=== PATIENT | male | born 1970 | race African-American/Black ===

== ENCOUNTER 2019-01-23 17:17 | Inpatient (IN) | payer BC ==
--- NOTE | 2019-01-23 17:27 | Event Note ---
ED Screening Note Date of service: 01/23/19 Time: 17:23 ED Screening Note: 48 y o male presents was seen by pcp last week fro abd pain, was given flagyl presents today because abd pain began with n/v This initial assessment/diagnostic orders/clinical plan/treatment(s) is/are subject to change based on patients health status, clinical progression and re- assessment by fellow clinical providers in the ED. Further treatment and workup at subsequent clinical providers discretion. Patient/guardian urged not to elope from the ED as their condition may be serious if not clinically assessed and managed. Initial orders include: labs,ua ct?
[2019-01-23] MEDS ORDERED: ONDANSETRON 4 MG/2 ML INJ IV ONE (18:30)
[2019-01-23] MEDS ORDERED: MORPHINE 4 MG/1 ML INJ IV ONE (18:30)
[2019-01-23] MEDS ORDERED: SODIUM CHLORIDE 0.9% 1000 ML 1,000 ML IV ONE ×2 (18:30→20:52)
[2019-01-23 18:35] LABS: Amorphous Crystals,Urine Few; Bilirubin,Urine NEG (Negative); Blood,Urine NEG (Negative); Calcium Oxalate Crystals,Urine 1+; Color,Urine Amber (Yellow); Mucus,Urine 3+ /HPF; Protein,Urine <15 mg/dL mg/dL (Negative)
[2019-01-23 18:36] LABS: RBC,Urine < 1.0 /HPF (0.0-6.0); WBC,Urine < 1.0 /HPF (0.0-6.0)
[2019-01-23 18:45] LABS: Basophils % (Auto) 0.4 % (0.0-1.8); Eosinophils % (Auto) 0.3 % (0.0-4.3); Hematocrit 41.6 % (35.5-45.6); Hemoglobin 14.3 gm/dl (11.8-15.2); Lymphocytes % (Auto) 14.6 % (13.4-35.0); Mean Corpuscular HGB Conc 34 % (32-34); Mean Corpuscular Volume 91 fl (84-94); Monocytes # (Auto) 0.8 K/mm3 (0.0-0.8); Monocytes % (Auto) 11.3 % (0.0-7.3); Platelet Count 431 K/mm3 (140-440); Red Blood Count 4.58 M/mm3 (3.65-5.03); Red Cell Distribution Width 12.4 % (13.2-15.2)
[2019-01-23 19:08] LABS: Albumin 4.1 g/dL (3.9-5); BUN/Creatinine Ratio 18; Blood Urea Nitrogen 11 mg/dL (9-20); Calcium 9.3 mg/dL (8.4-10.2); Hemolysis Index 58
[2019-01-23 19:11] LABS: Alanine Aminotransferase 755 units/L (7-56)
--- NOTE | 2019-01-23 20:24 | Cat Scan Report ---
CT ABDOMEN AND PELVIS WITH CONTRAST HISTORY: abdominal pain: Upper- Gallstones vs Cholecystitis. COMPARISON: None. TECHNIQUE: CT images of the abdomen and pelvis were obtained following administration of intravenous contrast. All CT scans at this location are performed using CT dose reduction for ALARA by means of automated exposure control. CONTRAST: 100 ml of intravenous contrast administered. FINDINGS: Lungs/bones: There is mild bibasilar atelectasis. No acute osseous abnormality. Mild degenerative ch anges are present in the spine and pelvis. Abdomen/pelvis: There is cholelithiasis with abnormal gallbladder wall thickening and mild distentio n. Stones are also seen within the cystic duct and also in the distal CBD measuring up to approximate ly 6 mm in maximal dimension on image #78 of series #2. There is mild intrahepatic and extrahepatic b iliary duct dilatation. The spleen, pancreas, adrenals, kidneys, and proximal GI tract appear unremarkable. The liver otherwi se appears unremarkable, as well. Prostate is enlarged. No pelvic free fluid and the urinary bladder is normal. The colon is unremarkab le including the appendix and terminal ileum. IMPRESSION: 1. Cholelithiasis and choledocholithiasis with CBD obstruction causing intrahepatic and extrahepatic biliary ductal dilatation. Abnormal wall thickening within the gallbladder and multiple cystic duct s tones also suggest cholecystitis. Signer Name: Jono Zhang MD Signed: 01/23/2019 8:19 PM Workstation Name: [id number]
[2019-01-23] MEDS ORDERED: METOCLOPRAMIDE 10 MG/2 ML INJ IV ONE (20:51)
[2019-01-23] MEDS ORDERED: HYDROmorphone 1 MG/1 ML INJ IV ONE (20:51)
[2019-01-23] MEDS ORDERED: PIPERACIL/TAZOBACTA 4.5/NS 100 4.5 GM/100 ML VIAL IV ONE (20:51)
--- NOTE | 2019-01-23 20:51 | Emergency Department Report ---
ED Abdominal Pain HPI - General Chief Complaint: Abdominal Pain Stated Complaint: STOMACH PX Source: patient Mode of arrival: Ambulatory Limitations: No Limitations - History of Present Illness Initial Comments: Patient is a 48-year-old [place] male with no past medical history who presents to the ED with complaint of acute onset persistent severe epigastric pain that radiates of the right upper quadrant area with intractable nausea and vomiting for the last 3 days. Patient states that he has not been able to eat anything in the last 24 hours and that the pain gets worse with food or drinking water. Patient denies fever, chills, dizziness, diarrhea, chest pain, shortness of breath, change in vision, hematuria, testicular pain, hematemesis or hematochezia. MD Complaint: abdominal pain, other (nausea and vomiting) -: Sudden, days(s) (3) Location: RUQ, epigastric Radiation: RUQ, epigastric Migration to: no migration Severity: severe Severity scale (0 -10): 8 Quality: cramping, sharp Consistency: constant Improves With: nothing Worsens With: eating, vomiting Associated Symptoms: denies other symptoms, nausea, vomiting. denies: diarrhea, fever, chills, constipation, hematemesis, hematochezia, hematuria, anorexia, syncope - Related Data Home Medications Medication Instructions Recorded Confirmed Last Taken No Known Home Medications [No 01/23/19 01/23/19 Unknown Reported Home Medications] Allergies Allergy/AdvReac Type Severity Reaction Status Date / Time No Known Allergies Allergy Unverified 01/23/19 17:26 ED Review of Systems ROS: Stated complaint: STOMACH PX Other details as noted in HPI Constitutional: denies: chills, fever Eyes: denies: eye pain, eye discharge, vision change ENT: denies: ear pain, throat pain Respiratory: denies: cough, shortness of breath, wheezing Cardiovascular: denies: chest pain, palpitations Endocrine: no symptoms reported Gastrointestinal: abdominal pain (epigastric and RUQ pain), nausea, vomiting. denies: diarrhea, hematemesis, hematochezia Genitourinary: denies: urgency, dysuria Musculoskeletal: denies: back pain, joint swelling, arthralgia Skin: denies: rash, lesions Neurological: denies: headache, weakness, paresthesias Psychiatric: denies: anxiety, depression Hematological/Lymphatic: denies: easy bleeding, easy bruising ED Past Medical Hx - Past Medical History Previous Medical History?: No - Surgical History Past Surgical History?: No - Medications Home Medications: Home Medications Medication Instructions Recorded Confirmed Last Taken Type No Known Home Medications [No 01/23/19 01/23/19 Unknown History Reported Home Medications] ED Physical Exam - General Limitations: No Limitations General appearance: alert, in no apparent distress - Head Head exam: Present: atraumatic, normocephalic, normal inspection - Eye Eye exam: Present: normal appearance, PERRL, EOMI Pupils: Present: normal accommodation - ENT ENT exam: Present: normal exam, normal orophraynx, mucous membranes moist, TM's normal bilaterally, normal external ear exam - Neck Neck exam: Present: normal inspection, full ROM - Respiratory Respiratory exam: Present: normal lung sounds bilaterally. Absent: respiratory distress, wheezes, rales, rhonchi, chest wall tenderness, accessory muscle use, prolonged expiratory - Cardiovascular Cardiovascular Exam: Present: regular rate, normal rhythm, normal heart sounds. Absent: systolic murmur, diastolic murmur, rubs, gallop - GI/Abdominal GI/Abdominal exam: Present: soft, tenderness (probable epigastric and right upper quadrant tenderness with positive Sinclair sign), guarding, rebound, normal bowel sounds. Absent: hyperactive bowel sounds - Extremities Exam Extremities exam: Present: normal inspection, full ROM, normal capillary refill - Back Exam Back exam: Present: normal inspection, full ROM. Absent: tenderness, muscle spasm, paraspinal tenderness, vertebral tenderness - Neurological Exam Neurological exam: Present: alert, oriented X3, CN II-XII intact, normal gait, reflexes normal - Psychiatric Psychiatric exam: Present: normal affect, normal mood - Skin Skin exam: Present: warm, dry, intact, normal color. Absent: rash ED Course Vital Signs 01/23/19 01/23/19 01/23/19 17:27 21:22 21:39 Temperature 99.1 F 98.8 F Pulse Rate 91 H 92 H Respiratory 18 17 18 Rate Blood Pressure 120/98 132/90 [Right] O2 Sat by Pulse 100 95 Oximetry ED Medical Decision Making - Lab Data Result diagrams: 01/23/19 17:59 01/23/19 17:59 - Radiology Data Radiology results: report reviewed, image reviewed Findings [address] [address] Cat Scan Report Signed Patient: CHRISTI BRADEN MR#: [id number] : 1970 Acct:[id number] Age/Sex: 48 / M ADM Date: 01/23/19 Loc: ED Attending Dr: Ordering Physician: FELICITY REY Date of Service: 01/23/19 Procedure(s): CT abdomen pelvis w con Accession Number(s): [id number] cc: FELICITY REY CT ABDOMEN AND PELVIS WITH CONTRAST HISTORY: abdominal pain: Upper- Gallstones vs Cholecystitis. COMPARISON: None. TECHNIQUE: CT images of the abdomen and pelvis were obtained following administration of intravenous contrast. All CT scans at this location are performed using CT dose reduction for ALARA by means of automated exposure control. CONTRAST: 100 ml of intravenous contrast administered. FINDINGS: Lungs/bones: There is mild bibasilar atelectasis. No acute osseous abnormality. Mild degenerative changes are present in the spine and pelvis. Abdomen/pelvis: There is cholelithiasis with abnormal gallbladder wall thickening and mild distention. Stones are also seen within the cystic duct and also in the distal CBD measuring up to approximately 6 mm in maximal dimension on image #78 of series #2. There is mild intrahepatic and extrahepatic biliary duct dilatation. The spleen, pancreas, adrenals, kidneys, and proximal GI tract appear unremarkable. The liver otherwise appears unremarkable, as well. Prostate is enlarged. No pelvic free fluid and the urinary bladder is normal. The colon is unremarkable including the appendix and terminal ileum. IMPRESSION: 1. Cholelithiasis and choledocholithiasis with CBD obstruction causing intrahepatic and extrahepatic biliary ductal dilatation. Abnormal wall thickening within the gallbladder and multiple cystic duct stones also suggest cholecystitis. Signer Name: Jono Zhang MD Signed: 01/23/2019 8:19 PM Workstation Name: [id number] Transcribed By: BRITT Dictated By: Jono Zhang MD Electronically Authenticated By: Jono Zhang MD Signed Date/Time: 01/23/192018 DD/ 16 TD/TT: - Medical Decision Making This is a 48-year-old male who presented to the ED with acute onset severe epigastric and right upper quadrant pain with intractable nausea and vomiting for 3 days. In the ED, patient is alert and oriented 3 and is not in distress but appears to be significantly in pain as he cannot keep still during the physical exam which is characterized by right upper quadrant tenderness with a positive Sinclair's sign. Patient is hemodynamically stable. Lab test results w ere reviewed and shows significantly elevated LFTs with AST of 956, and LT of 755, and alkaline phosphatase of 190, total bilirubin of 2.00. The rest of the lab test results are nonactionable. Abdomen pelvis CT scan with contrast shows cholelithiasis and choledocholithiasis with CBD obstruction causing intrahepatic and extrahepatic biliary ductal dilatation. Abnormal wall thickening within the gallbladder and multiple cystic duct stones also suggest cholecystitis. Patient was treated for pain and also for nausea and vomiting are most given normal saline 1 L IV bolus. These findings were discussed with Dr. Killian the ED attending physician who agreed the plan of care to consult the general surgeon, Dr. Galvez, and the GI physician on-call for [employer] configuration management architect, Dr. Jamison Maria, and also the hospitalist physician operations officer trust department Dr. Caro. I patient and discussed the patient's case and findings with the general surgeon operations officer trust department Dr. Galvez who advised the patient kept nothing by [facility], be treated for pain and given normal saline IV fluids and also started on Zosyn and that the hospitalist physician admit and she shall consult the patient in the morning. I also discussed the patient's case with the [employer] configuration management architect on-call Dr. Jamison Maria agreed to consult the patient in the morning for further evaluation. I also discussed the patient's case with the hospitalist physician on-call Dr. Stevens who admitted the patient to the hospital and requested that the ED admission bridge orders be placed for the patient. - Differential Diagnosis Choledocholithiasis; Cholecystitis; Abdominal pain; Vomiting Critical care attestation.: If time is entered above; I have spent that time in minutes in the direct care of this critically ill patient, excluding procedure time. ED Disposition Clinical Impression: Choledocholithiasis with acute cholecystitis with obstruction, Abdominal pain in male, Nausea and vomiting in adult Disposition: 09 OP ADMIT IP TO THIS HOSP Is pt being admited?: Yes Does the pt Need Aspirin: Yes Condition: Stable Instructions: Cholecystitis (ED), Cholelithiasis (ED) Referrals: PRIMARY CARE, [Primary Care Provider] - 3-5 Days Time of Disposition: 22:03 Print Language: SLOVENIAN
[2019-01-23] MEDS ORDERED: ONDANSETRON 4 MG/2 ML INJ IV PRN (22:31)
--- NOTE | 2019-01-23 23:48 | History and Physical Report ---
History of Present Illness Date of examination: 01/23/19 Date of admission: 01/23/19 Chief complaint: Abdominal painepigastric Nausea and vomiting History of present illness: 48-year-old male presenting to the emergency room complaining of abdominal pain. Abdominal pain is said to be epigastric and has been having associated nausea and vomiting. Patient has no significant past medical history. He also indicates yellow been able to tolerate oral intake over the past 24 hours. He denies any fever, no chills, no chest pain no shortness of breath. No diarrhea. Upon evaluation in the emergency room, his liver enzymes were found to be elevated. He subsequently had a CT of the abdomen and pelvis revealing choledocholithiasis cholecystitis cholelithiasis. His condition has been discussed with the general surgeon Dr. West will be following up on patient the lauren Date Pitter on-call was also consulted by the ER physician. Past History Past Surgical History: No surgical history Social history: no significant social history Family history: hypertension (Hypertension in mother) Medications and Allergies Allergies Allergy/AdvReac Type Severity Reaction Status Date / Time No Known Allergies Allergy Verified 01/23/19 22:36 Home Medications Medication Instructions Recorded Confirmed Last Taken Type No Known Home Medications [No 01/23/19 01/23/19 Unknown History Reported Home Medications] Active Meds: Active Medications Sodium Chloride (Nacl 0.9% 1000 Ml) 1,000 mls @ 125 mls/hr IV DIRECT SANTI Piperacillin Sod/Tazobactam Sod (Zosyn/Ns 3.375gm/50ml) 3.375 gm in 50 mls @ 100 mls/hr IV Q8HR SANTI; Protocol Morphine Sulfate (Morphine) 2 mg IV Q4H PRN PRN Reason: Pain, Moderate (4-6) Ondansetron HCl (Zofran) 4 mg IV Q8H PRN PRN Reason: Nausea And Vomiting Sodium Chloride (Sodium Chloride Flush Syringe 10 Ml) 10 ml IV BID SANTI Sodium Chloride (Sodium Chloride Flush Syringe 10 Ml) 10 ml IV PRN PRN PRN Reason: LINE FLUSH Review of Systems Gastrointestinal: abdominal pain, nausea, vomiting Exam - Constitutional Vitals: Temp Pulse Resp BP Pulse Ox 98.8 F 92 H 18 132/90 95 01/23/19 21:39 01/23/19 21:39 01/23/19 21:39 01/23/19 21:39 01/23/19 21:39 General appearance: Present: no acute distress, well-nourished - EENT Eyes: Present: PERRL, EOM intact ENT: hearing intact, clear oral mucosa, dentition normal - Neck Neck: Present: supple, normal ROM - Respiratory Respiratory effort: normal Respiratory: bilateral: CTA - Cardiovascular Rhythm: regular Heart Sounds: Present: S1 & S2 - Extremities Extremities: no ischemia, pulses intact, pulses symmetrical, No edema Peripheral Pulses: within normal limits - Abdominal General gastrointestinal: Present: soft, tender, non-distended Localized gastrointestinal: tender: epigastric periumbilical (Epi epigastric tenderness) - Integumentary Integumentary: Present: clear, warm, dry - Musculoskeletal Musculoskeletal: strength equal bilaterally - Psychiatric Psychiatric: appropriate mood/affect, intact judgment & insight, cooperative - Neurologic Neurologic: CNII-XII intact, moves all extremities Results - Labs CBC & Chem 7: 01/23/19 17:59 01/23/19 17:59 Labs: Abnormal lab results 01/23/19 01/23/19 Range/Units 17:59 17:59 RDW 12.4 L (13.2-15.2) % [place] % (Auto) 11.3 H (0.0-7.3) % Lymph # 1.0 L (1.2-5.4) K/mm3 Seg Neutrophils % 73.4 H (40.0-70.0) % Creatinine 0.6 L (0.8-1.5) mg/dL Glucose 129 H (75-100) mg/dL Total Bilirubin 2.00 H (0.1-1.2) mg/dL AST 956 H (5-40) units/L ALT 755 H (7-56) units/L Alkaline Phosphatase 190 H (35-129) units/L Assessment and Plan - Patient Problems (1) Choledocholithiasis with acute cholecystitis with obstruction Current Visit: Yes Status: Acute Plan to address problem: Meanwhile we will place patient on IV fluid and analgesic medication. She will be made n.p.o. Patient will be followed up by the general surgeon and sales development representative. (2) Nausea and vomiting in adult Current Visit: Yes Status: Acute Plan to address problem: We will place patient on IV Zofran as needed (3) DVT prophylaxis Current Visit: Yes Status: Acute Plan to address problem: Patient placed on sequential compression device. (4) Full code status Current Visit: Yes Status: Acute
[2019-01-24] MEDS: SODIUM CHLORIDE 0.9% 1000 ML 1,000 ML IV SCH ×3 (02:00→20:25)
[2019-01-24] MEDS: MORPHINE 2 MG/1 ML INJ IV PRN ×2 (02:53→17:56)
[2019-01-24] MEDS ORDERED: PIPERACILLIN/TAZOBACTAM 3.375 3.375 GM/50 ML BAG IV SCH (06:00)
[2019-01-24 06:29] LABS: Basophils % (Auto) 0.4 % (0.0-1.8); Eosinophils % (Auto) 0.1 % (0.0-4.3); Hematocrit 40.1 % (35.5-45.6); Hemoglobin 13.8 gm/dl (11.8-15.2); Lymphocytes % (Auto) 13.3 % (13.4-35.0); Mean Corpuscular HGB Conc 34 % (32-34); Mean Corpuscular Volume 91 fl (84-94); Monocytes # (Auto) 0.8 K/mm3 (0.0-0.8); Platelet Count 378 K/mm3 (140-440); Red Blood Count 4.43 M/mm3 (3.65-5.03); Red Cell Distribution Width 12.2 % (13.2-15.2)
[2019-01-24 06:37] LABS: INR 0.98 (0.87-1.13)
[2019-01-24 06:38] LABS: Partial Thromboplastin Time 26.3 Sec. (24.2-36.6)
[2019-01-24 06:49] LABS: BUN/Creatinine Ratio 20; Blood Urea Nitrogen 10 mg/dL (9-20); Calcium 8.5 mg/dL (8.4-10.2); Hemolysis Index 2
--- NOTE | 2019-01-24 10:19 | Gastroenterology Consultation ---
History of Present Illness - Reason for Consult Consult date: 01/24/19 choledocholithiasis Requesting physician: OLYA BURDICK - History of Present Illness Patient is a 48 y/o male with no significant PMH who presented to ED with c/o epigastric pain with associated N/V x 3. Upon admission, LFTs were found to be elevated with abd CT showing cholecystitis, cholelithiasis, and choledocholithiasis to which GI has been consulted. Surgery also consulted. This morning patient was resting in bed w/o acute distress with family at bedside who assisted with translating to obtain history. Patient reports symptoms began ~1 weeks ago, but then improved until 3 days ago when they re-occurred and became progressively worse. Abd pain is in epigastric area and radiates to RUQ, but now improved with pain medication. No vomiting today. Denies fever, CP, SOB, signs of bleeding, or LGI symptoms. Consumes 1-2 alcoholic drinks daily, but no IV drug use or hx of liver disease. Past History Past Medical History: No medical history Past Surgical History: No surgical history Social history: other (alcohol). denies: smoking Family history: hypertension (Hypertension in mother) Medications and Allergies Allergies Allergy/AdvReac Type Severity Reaction Status Date / Time No Known Allergies Allergy Verified 01/23/19 22:36 Home Medications Medication Instructions Recorded Confirmed Last Taken Type No Known Home Medications [No 01/23/19 01/23/19 Unknown History Reported Home Medications] Active Meds: Active Medications Sodium Chloride (Nacl 0.9% 1000 Ml) 1,000 mls @ 125 mls/hr IV DIRECT SANTI Last Admin: 01/24/19 02:00 Dose: 125 mls/hr Documented by: Piperacillin Sod/Tazobactam Sod (Zosyn/Ns 3.375gm/50ml) 3.375 gm in 50 mls @ 1 00 mls/hr IV Q8HR SANTI; Protocol Last Admin: 01/24/19 05:59 Dose: 100 mls/hr Documented by: Morphine Sulfate (Morphine) 2 mg IV Q4H PRN PRN Reason: Pain, Moderate (4-6) Last Admin: 01/24/19 02:53 Dose: 2 mg Documented by: Ondansetron HCl (Zofran) 4 mg IV Q8H PRN PRN Reason: Nausea And Vomiting Sodium Chloride (Sodium Chloride Flush Syringe 10 Ml) 10 ml IV BID SANTI Last Admin: 01/24/19 09:17 Dose: 10 ml Documented by: Sodium Chloride (Sodium Chloride Flush Syringe 10 Ml) 10 ml IV PRN PRN PRN Reason: LINE FLUSH medications reviewed/updated as required Review of Systems - Review of Systems All systems: negative Gastrointestinal: abdominal pain (epigastric), nausea, vomiting Exam - Constitutional Vital Signs: Temp Pulse Resp BP Pulse Ox 98.9 F 93 H 17 145/95 97 01/24/19 01:57 01/24/19 01:57 01/24/19 03:23 01/24/19 01:57 01/24/19 01:57 General appearance: no acute distress - EENT Eyes: PERRL, EOM intact ENT: hearing intact - Respiratory Respiratory effort: normal Respiratory: bilateral: CTA - Cardiovascular Rhythm: regular - Gastrointestinal General gastrointestinal: Present: soft, tender (epigastric/RUQ), non-distended, normal bowel sounds - Integumentary Integumentary: Present: warm, dry - Neurologic Neurological: alert and oriented x3 - Labs CBC & Chem 7: 01/24/19 05:31 01/24/19 05:31 Lab Results: Laboratory Results - last 24 hr 01/23/19 01/23/19 01/23/19 17:59 17:59 18:00 WBC 6.7 RBC 4.58 Hgb 14.3 Hct 41.6 MCV 91 MCH 31 MCHC 34 RDW 12.4 L Plt Count 431 Lymph % (Auto) 14.6 Crisp % (Auto) 11.3 H Eos % (Auto) 0.3 Baso % (Auto) 0.4 Lymph # 1.0 L Crisp # 0.8 Eos # 0.0 Baso # 0.0 Seg Neutrophils % 73.4 H Seg Neutrophils # 4.9 PT INR APTT Sodium 138 Potassium 3.7 Chloride 100.8 Carbon Dioxide 25 Anion Gap 16 BUN 11 Creatinine 0.6 L Estimated GFR > 60 BUN/Creatinine Ratio 18 Glucose 129 H Calcium 9.3 Total Bilirubin 2.00 H AST 956 H ALT 755 H Alkaline Phosphatase 190 H Total Protein 7.6 Albumin 4.1 Albumin/Globulin Ratio 1.2 Lipase 24 Urine Color Deb Urine Turbidity Slightly-cloudy Urine pH 6.0 Ur Specific [place] 1.020 Urine Protein <15 mg/dl Urine Glucose (UA) Neg Urine Ketones Neg Urine Blood Neg Urine Nitrite Neg Urine Bilirubin Neg Urine Urobilinogen 2.0 Ur Leukocyte Esterase Neg Urine WBC (Auto) < 1.0 Urine RBC (Auto) < 1.0 Calcium Oxalate Crystal 1+ Amorphous Crystals Few Urine Mucus 3+ 01/24/19 01/24/19 01/24/19 05:31 05:31 05:31 WBC 7.3 RBC 4.43 Hgb 13.8 Hct 40.1 MCV 91 MCH 31 MCHC 34 RDW 12.2 L Plt Count 378 Lymph % (Auto) 13.3 L Crisp % (Auto) 11.0 H Eos % (Auto) 0.1 Baso % (Auto) 0.4 Lymph # 1.0 L Crisp # 0.8 Eos # 0.0 Baso # 0.0 Seg Neutrophils % 75.2 H Seg Neutrophils # 5.5 PT 13.1 INR 0.98 APTT 26.3 Sodium 137 Potassium 4.0 Chloride 101.8 Carbon Dioxide 22 Anion Gap 17 BUN 10 Creatinine 0.5 L Estimated GFR > 60 BUN/Creatinine Ratio 20 Glucose 126 H Calcium 8.5 Total Bilirubin AST ALT Alkaline Phosphatase Total Protein Albumin Albumin/Globulin Ratio Lipase Urine Color Urine Turbidity Urine pH Ur Specific [place] Urine Protein Urine Glucose (UA) Urine Ketones Urine Blood Urine Nitrite Urine Bilirubin Urine Urobilinogen Ur Leukocyte Esterase Urine WBC (Auto) Urine RBC (Auto) Calcium Oxalate Crystal Amorphous Crystals Urine Mucus Assessment and Plan 1.choledocholithiasis -afebrile -WBC WNL -H/H, plt, INR WNL -lipase WNL -LFTs- T.marlene 2.00, AST 956, ALT 755, alk phos 190 -abd CT showed cholelithiasis, abnormal wall thickening within gallbladder with multiple cystic duct stones which suggest cholecystitis, and choledocholithiasis with CBD obstruction causing intrahepatic and extrahepatic biliary ductal dilatation -surgery following -clinically, patient is stable with abd pain improved with pain medication and vomiting resolved. -will schedule for ERCP tomorrow -okay for clear liquids today as tolerated then NPO after MN -continue antibiotics and supportive care (IVF, pain control, antiemetics, etc) -repeat labs in am -will follow
--- NOTE | 2019-01-24 11:17 | Progress Note ---
Assessment and Plan Assessment and plan: Choledocholithiasis with acute cholecystitis with obstruction Cont. IV fluid and analgesic medication. Cont. n.p.o. Patient will be followed up by the general surgeon and physician neonatology. CT of the abdomen and pelvis revealing choledocholithiasis cholecystitis cholelithiasis. Nausea and vomiting in adult We will place patient on IV Zofran as needed DVT prophylaxis Patient placed on sequential compression device. History Interval history: No new issues Hospitalist Physical - Constitutional Vitals: Temp Pulse Resp BP Pulse Ox 98.9 F 93 H 17 145/95 97 01/24/19 01:57 01/24/19 01:57 01/24/19 03:23 01/24/19 01:57 01/24/19 01:57 General appearance: Present: no acute distress, well-nourished - EENT Eyes: Present: PERRL, EOM intact ENT: hearing intact, clear oral mucosa, dentition normal - Neck Neck: Present: supple, normal ROM - Respiratory Respiratory effort: normal Respiratory: bilateral: CTA - Cardiovascular Rhythm: regular Heart Sounds: Present: S1 & S2. Absent: gallop, rub - Extremities Extremities: no ischemia, No edema, Full ROM - Abdominal General gastrointestinal: soft, non-tender, non-distended, normal bowel sounds - Integumentary Integumentary: Present: clear, warm, dry - Neurologic Neurologic: CNII-XII intact, moves all extremities Results - Labs CBC & Chem 7: 01/24/19 05:31 01/24/19 05:31 Labs: Laboratory Last Values WBC 7.3 K/mm3 (4.5-11.0) 01/24/19 05:31 RBC 4.43 M/mm3 (3.65-5.03) 01/24/19 05:31 Hgb 13.8 gm/dl (11.8-15.2) 01/24/19 05:31 Hct 40.1 % (35.5-45.6) 01/24/19 05:31 MCV 91 fl (84-94) 01/24/19 05:31 MCH 31 pg (28-32) 01/24/19 05:31 MCHC 34 % (32-34) 01/24/19 05:31 RDW 12.2 % (13.2-15.2) L 01/24/19 05:31 Plt Count 378 K/mm3 (140-440) 01/24/19 05:31 Lymph % (Auto) 13.3 % (13.4-35.0) L 01/24/19 05:31 [place] % (Auto) 11.0 % (0.0-7.3) H 01/24/19 05:31 Eos % (Auto) 0.1 % (0.0-4.3) 01/24/19 05:31 Baso % (Auto) 0.4 % (0.0-1.8) 01/24/19 05:31 Lymph # 1.0 K/mm3 (1.2-5.4) L 01/24/19 05:31 [place] # 0.8 K/mm3 (0.0-0.8) 01/24/19 05:31 Eos # 0.0 K/mm3 (0.0-0.4) 01/24/19 05:31 Baso # 0.0 K/mm3 (0.0-0.1) 01/24/19 05:31 Seg Neutrophils % 75.2 % (40.0-70.0) H 01/24/19 05:31 Seg Neutrophils # 5.5 K/mm3 (1.8-7.7) 01/24/19 05:31 PT 13.1 Sec. (12.2-14.9) 01/24/19 05:31 INR 0.98 (0.87-1.13) 01/24/19 05:31 APTT 26.3 Sec. (24.2-36.6) 01/24/19 05:31 Sodium 137 mmol/L (137-145) 01/24/19 05:31 Potassium 4.0 mmol/L (3.6-5.0) 01/24/19 05:31 Chloride 101.8 mmol/L (98-107) 01/24/19 05:31 Carbon Dioxide 22 mmol/L (22-30) 01/24/19 05:31 Anion Gap 17 mmol/L 01/24/19 05:31 BUN 10 mg/dL (9-20) 01/24/19 05:31 Creatinine 0.5 mg/dL (0.8-1.5) L 01/24/19 05:31 Estimated GFR > 60 ml/min 01/24/19 05:31 BUN/Creatinine Ratio 20 % 01/24/19 05:31 Glucose 126 mg/dL (75-100) H 01/24/19 05:31 Calcium 8.5 mg/dL (8.4-10.2) 01/24/19 05:31 Total Bilirubin 2.00 mg/dL (0.1-1.2) H 01/23/19 17:59 AST 956 units/L (5-40) H 01/23/19 17:59 ALT 755 units/L (7-56) H 01/23/19 17:59 Alkaline Phosphatase 190 units/L (35-129) H 01/23/19 17:59 Total Protein 7.6 g/dL (6.3-8.2) 01/23/19 17:59 Albumin 4.1 g/dL (3.9-5) 01/23/19 17:59 Albumin/Globulin Ratio 1.2 % 01/23/19 17:59 Lipase 24 units/L (13-60) 01/23/19 17:59 Urine Color Deb (Yellow) 01/23/19 18:00 Urine Turbidity Slightly-cloudy (Clear) 01/23/19 18:00 Urine pH 6.0 (5.0-7.0) 01/23/19 18:00 Ur Specific [place] 1.020 (1.003-1.030) 01/23/19 18:00 Urine Protein <15 mg/dl mg/dL (Negative) 01/23/19 18:00 Urine Glucose (UA) Neg mg/dL (Negative) 01/23/19 18:00 Urine Ketones Neg mg/dL (Negative) 01/23/19 18:00 Urine Blood Neg (Negative) 01/23/19 18:00 Urine Nitrite Neg (Negative) 01/23/19 18:00 Urine Bilirubin Neg (Negative) 01/23/19 18:00 Urine Urobilinogen 2.0 mg/dL (<2.0) 01/23/19 18:00 Ur Leukocyte Esterase Neg (Negative) 01/23/19 18:00 Urine WBC (Auto) < 1.0 /HPF (0.0-6.0) 01/23/19 18:00 Urine RBC (Auto) < 1.0 /HPF (0.0-6.0) 01/23/19 18:00 Calcium Oxalate Crystal 1+ 01/23/19 18:00 Amorphous Crystals Few 01/23/19 18:00 Urine Mucus 3+ /HPF 01/23/19 18:00 Active Medications - Current Medications Current Medications: Generic Name Dose Route Start Last Admin Trade Name Freq PRN Reason Stop Dose Admin Sodium Chloride 1,000 mls @ 125 mls/hr 01/23/19 22:45 01/24/19 02:00 Nacl 0.9% 1000 Ml IV 125 mls/hr DIRECT SANTI Administration Piperacillin Sod/Tazobactam Sod 3.375 gm in 50 mls @ 100 mls/hr 01/24/19 06:00 01/24/19 05:59 Zosyn/Ns 3.375gm/50ml IV 100 mls/hr Q8HR SANTI Administration Protocol Morphine Sulfate 2 mg 01/23/19 22:31 01/24/19 02:53 Morphine IV 2 mg Q4H PRN Administration Pain, Moderate (4-6) Ondansetron HCl 4 mg 01/23/19 22:31 Zofran IV Q8H PRN Nausea And Vomiting Sodium Chloride 10 ml 01/24/19 10:00 01/24/19 09:17 Sodium Chloride Flush Syringe 10 Ml IV 10 ml BID SANTI Administration Sodium Chloride 10 ml 01/23/19 22:31 Sodium Chloride Flush Syringe 10 Ml IV PRN PRN LINE FLUSH
--- NOTE | 2019-01-24 14:19 | Consultation ---
History of Present Illness Consult date: 01/24/19 Reason for consult: abdominal pain Chief complaint: abdominal pain - History of present illness History of present illness: 48 yo M with no PMHx presents to ER with epigastric abdominal pain, sharp, which started suddenly and gradually got worse. The pain does not radiate and has been present for 1-2 weeks.. It is made better by the pain medications administered in the hospital. No f/c, cp, sob. +n/v (NB/NB). +Flatus. +constipation. He has never had pain like this in the past. Past History Past Medical History: No medical history Past Surgical History: No surgical history Social history: other (alcohol 2 beers a day). denies: smoking Family history: hypertension (Hypertension in mother) Medications and Allergies Allergies Allergy/AdvReac Type Severity Reaction Status Date / Time No Known Allergies Allergy Verified 01/23/19 22:36 Home Medications Medication Instructions Recorded Confirmed Last Taken Type No Known Home Medications [No 01/23/19 01/23/19 Unknown History Reported Home Medications] Active Meds: Active Medications Sodium Chloride (Nacl 0.9% 1000 Ml) 1,000 mls @ 125 mls/hr IV DIRECT SANTI Last Admin: 01/24/19 11:27 Dose: 125 mls/hr Documented by: Piperacillin Sod/Tazobactam Sod (Zosyn/Ns 3.375gm/50ml) 3.375 gm in 50 mls @ 100 mls/hr IV Q8HR [facility]; Protocol Last Admin: 01/24/19 05:59 Dose: 100 mls/hr Documented by: Morphine Sulfate (Morphine) 2 mg IV Q4H PRN PRN Reason: Pain, Moderate (4-6) Last Admin: 01/24/19 02:53 Dose: 2 mg Documented by: Ondansetron HCl (Zofran) 4 mg IV Q8H PRN PRN Reason: Nausea And Vomiting Sodium Chloride (Sodium Chloride Flush Syringe 10 Ml) 10 ml IV BID [facility] Last Admin: 01/24/19 09:17 Dose: 10 ml Documented by: Sodium Chloride (Sodium Chloride Flush Syringe 10 Ml) 10 ml IV PRN PRN PRN Reason: LINE FLUSH Review of Systems All systems: negative (pt ROS performed and negative except for that listed in HPI) Exam Vital Signs Temp Pulse Resp BP Pulse Ox 99.1 F 91 H 18 120/98 100 01/23/19 17:27 01/23/19 17:27 01/23/19 17:27 01/23/19 17:27 01/23/19 17:27 Narrative exam: Gen; AAOx3. NAD ENT: NO scleral icterus or conjunctival pallor CV: S1, S2+ Resp: even and unlabored Abd: soft, NT, ND. no r/r/g Ext: no c/c/e Results - Labs 01/24/19 05:31 01/24/19 05:31 Abnormal lab results 01/23/19 01/23/19 01/24/19 Range/Units 17:59 17:59 05:31 RDW 12.4 L 12.2 L (13.2-15.2) % Lymph % (Auto) 13.3 L (13.4-35.0) % [place] % (Auto) 11.3 H 11.0 H (0.0-7.3) % Lymph # 1.0 L 1.0 L (1.2-5.4) K/mm3 Seg Neutrophils % 73.4 H 75.2 H (40.0-70.0) % Creatinine 0.6 L (0.8-1.5) mg/dL Glucose 129 H (75-100) mg/dL Total Bilirubin 2.00 H (0.1-1.2) mg/dL AST 956 H (5-40) units/L ALT 755 H (7-56) units/L Alkaline Phosphatase 190 H (35-129) units/L 01/24/19 Range/Units 05:31 RDW (13.2-15.2) % Lymph % (Auto) (13.4-35.0) % [place] % (Auto) (0.0-7.3) % Lymph # (1.2-5.4) K/mm3 Seg Neutrophils % (40.0-70.0) % Creatinine 0.5 L (0.8-1.5) mg/dL Glucose 126 H (75-100) mg/dL Total Bilirubin (0.1-1.2) mg/dL AST (5-40) units/L ALT (7-56) units/L Alkaline Phosphatase (35-129) units/L Diabetes panel 01/23/19 01/24/19 Range/Units 17:59 05:31 Sodium 138 137 (137-145) mmol/L Potassium 3.7 4.0 (3.6-5.0) mmol/L Chloride 100.8 101.8 (98-107) mmol/L Carbon Dioxide 25 22 (22-30) mmol/L BUN 11 10 (9-20) mg/dL Creatinine 0.6 L 0.5 L (0.8-1.5) mg/dL Glucose 129 H 126 H (75-100) mg/dL Calcium 9.3 8.5 (8.4-10.2) mg/dL AST 956 H (5-40) units/L ALT 755 H (7-56) units/L Alkaline Phosphatase 190 H (35-129) units/L Total Protein 7.6 (6.3-8.2) g/dL Albumin 4.1 (3.9-5) g/dL Calcium panel 01/23/19 01/24/19 Range/Units 17:59 05:31 Calcium 9.3 8.5 (8.4-10.2) mg/dL Albumin 4.1 (3.9-5) g/dL Pituitary panel 01/23/19 01/24/19 Range/Units 17:59 05:31 Sodium 138 137 (137-145) mmol/L Potassium 3.7 4.0 (3.6-5.0) mmol/L Chloride 100.8 101.8 (98-107) mmol/L Carbon Dioxide 25 22 (22-30) mmol/L BUN 11 10 (9-20) mg/dL Creatinine 0.6 L 0.5 L (0.8-1.5) mg/dL Glucose 129 H 126 H (75-100) mg/dL Calcium 9.3 8.5 (8.4-10.2) mg/dL Adrenal panel 01/23/19 01/24/19 Range/Units 17:59 05:31 Sodium 138 137 (137-145) mmol/L Potassium 3.7 4.0 (3.6-5.0) mmol/L Chloride 100.8 101.8 (98-107) mmol/L Carbon Dioxide 25 22 (22-30) mmol/L BUN 11 10 (9-20) mg/dL Creatinine 0.6 L 0.5 L (0.8-1.5) mg/dL Glucose 129 H 126 H (75-100) mg/dL Calcium 9.3 8.5 (8.4-10.2) mg/dL Total Bilirubin 2.00 H (0.1-1.2) mg/dL AST 956 H (5-40) units/L ALT 755 H (7-56) units/L Alkaline Phosphatase 190 H (35-129) units/L Total Protein 7.6 (6.3-8.2) g/dL Albumin 4.1 (3.9-5) g/dL - Imaging CT scan - abdomen: report reviewed, image reviewed CT scan - pelvis: report reviewed, image reviewed Assessment and Plan 48 yo M with 1. choledocolithiasis 2. cholecystitis Plan: 1. Clear liquid diet -> may be advanced to soft diet after ERCP tomorrow 2. IVF 3. IV abx -on zosyn 4. trend LFTs, bilirubin 5. Gi consulted - plan for ERCP tomorrow 6. Discussed indication for cholecystectomy with patient and his family at the bedside. All risks, benefits, alternatives discussed and questions answered. Will place on OR schedule for Monday for robotic assisted cholecystectomy. Thank you, please call with questions
[2019-01-24] MEDS: PIPERACIL/TAZOBACTA 4.5/NS 100 4.5 GM/100 ML VIAL IV SCH ×2 (17:51→21:16)
[2019-01-24] MEDS ORDERED: PIPERACIL/TAZOBACTA 4.5/NS 100 4.5 GM/100 ML VIAL IV SCH (22:00)
[2019-01-25 04:48] LABS: Basophils % (Auto) 0.6 % (0.0-1.8); Eosinophils # (Auto) 0.1 K/mm3 (0.0-0.4); Eosinophils % (Auto) 0.9 % (0.0-4.3); Hematocrit 40.1 % (35.5-45.6); Hemoglobin 13.7 gm/dl (11.8-15.2); Lymphocytes # (Auto) 1.4 K/mm3 (1.2-5.4); Lymphocytes % (Auto) 23.3 % (13.4-35.0); Mean Corpuscular HGB Conc 34 % (32-34); Mean Corpuscular Volume 91 fl (84-94); Monocytes # (Auto) 0.7 K/mm3 (0.0-0.8); Monocytes % (Auto) 11.4 % (0.0-7.3); Platelet Count 384 K/mm3 (140-440); Red Cell Distribution Width 12.4 % (13.2-15.2)
[2019-01-25 05:04] LABS: Alanine Aminotransferase 483 units/L (7-56); Albumin 3.7 g/dL (3.9-5); BUN/Creatinine Ratio 10; Bilirubin,Direct 3.2 mg/dL (0-0.2); Blood Urea Nitrogen 5 mg/dL (9-20); Calcium 8.5 mg/dL (8.4-10.2); Hemolysis Index 0
[2019-01-25] MEDS: PIPERACIL/TAZOBACTA 4.5/NS 100 4.5 GM/100 ML VIAL IV SCH ×3 (05:14→22:21)
[2019-01-25] MEDS: SODIUM CHLORIDE 0.9% 1000 ML 1,000 ML IV SCH ×2 (05:14→13:30)
[2019-01-25] MEDS: MORPHINE 2 MG/1 ML INJ IV PRN (05:15)
--- NOTE | 2019-01-25 12:42 | Progress Note ---
Assessment and Plan Assessment and plan: Choledocholithiasis with acute cholecystitis with obstruction Cont. IV fluid and analgesic medication. Cont. n.p.o. ERCP today per GI. Continue IV antibiotics of Zosyn. Trend LFTs and bilirubin. Potential cholecystectomy tomorrow. Nausea and vomiting in adult We will place patient on IV Zofran as needed DVT prophylaxis Patient placed on sequential compression device. History Interval history: No new issues Hospitalist Physical - Constitutional Vitals: Temp Pulse Resp BP Pulse Ox 98.7 F 81 18 135/94 94 01/25/19 12:11 01/25/19 12:11 01/25/19 12:11 01/25/19 12:11 01/25/19 12:11 General appearance: Present: no acute distress, well-nourished - EENT Eyes: Present: PERRL, EOM intact ENT: hearing intact, clear oral mucosa, dentition normal - Neck Neck: Present: supple, normal ROM - Respiratory Respiratory effort: normal Respiratory: bilateral: CTA - Cardiovascular Rhythm: regular Heart Sounds: Present: S1 & S2. Absent: gallop, rub - Extremities Extremities: no ischemia, No edema, Full ROM - Abdominal General gastrointestinal: soft, non-tender, non-distended, normal bowel sounds - Integumentary Integumentary: Present: clear, warm, dry - Neurologic Neurologic: CNII-XII intact, moves all extremities Results - Labs CBC & Chem 7: 01/25/19 04:06 01/25/19 04:06 Labs: Laboratory Last Values WBC 5.9 K/mm3 (4.5-11.0) 01/25/19 04:06 RBC 4.40 M/mm3 (3.65-5.03) 01/25/19 04:06 Hgb 13.7 gm/dl (11.8-15.2) 01/25/19 04:06 Hct 40.1 % (35.5-45.6) 01/25/19 04:06 MCV 91 fl (84-94) 01/25/19 04:06 MCH 31 pg (28-32) 01/25/19 04:06 MCHC 34 % (32-34) 01/25/19 04:06 RDW 12.4 % (13.2-15.2) L 01/25/19 04:06 Plt Count 384 K/mm3 (140-440) 01/25/19 04:06 Lymph % (Auto) 23.3 % (13.4-35.0) 01/25/19 04:06 [place] % (Auto) 11.4 % (0.0-7.3) H 01/25/19 04:06 Eos % (Auto) 0.9 % (0.0-4.3) 01/25/19 04:06 Baso % (Auto) 0.6 % (0.0-1.8) 01/25/19 04:06 Lymph # 1.4 K/mm3 (1.2-5.4) 01/25/19 04:06 [place] # 0.7 K/mm3 (0.0-0.8) 01/25/19 04:06 Eos # 0.1 K/mm3 (0.0-0.4) 01/25/19 04:06 Baso # 0.0 K/mm3 (0.0-0.1) 01/25/19 04:06 Seg Neutrophils % 63.8 % (40.0-70.0) 01/25/19 04:06 Seg Neutrophils # 3.7 K/mm3 (1.8-7.7) 01/25/19 04:06 PT 13.1 Sec. (12.2-14.9) 01/24/19 05:31 INR 0.98 (0.87-1.13) 01/24/19 05:31 APTT 26.3 Sec. (24.2-36.6) 01/24/19 05:31 Sodium 138 mmol/L (137-145) 01/25/19 04:06 Potassium 3.8 mmol/L (3.6-5.0) 01/25/19 04:06 Chloride 104.2 mmol/L (98-107) 01/25/19 04:06 Carbon Dioxide 25 mmol/L (22-30) 01/25/19 04:06 Anion Gap 13 mmol/L 01/25/19 04:06 BUN 5 mg/dL (9-20) L 01/25/19 04:06 Creatinine 0.5 mg/dL (0.8-1.5) L 01/25/19 04:06 Estimated GFR > 60 ml/min 01/25/19 04:06 BUN/Creatinine Ratio 10 % 01/25/19 04:06 Glucose 127 mg/dL (75-100) H 01/25/19 04:06 Calcium 8.5 mg/dL (8.4-10.2) 01/25/19 04:06 Total Bilirubin 3.80 mg/dL (0.1-1.2) H 01/25/19 04:06 Direct Bilirubin 3.2 mg/dL (0-0.2) H 01/25/19 04:06 Indirect Bilirubin 0.6 mg/dL 01/25/19 04:06 AST 184 units/L (5-40) H 01/25/19 04:06 ALT 483 units/L (7-56) H 01/25/19 04:06 Alkaline Phosphatase 186 units/L (35-129) H 01/25/19 04:06 Total Protein 6.7 g/dL (6.3-8.2) 01/25/19 04:06 Albumin 3.7 g/dL (3.9-5) L 01/25/19 04:06 Albumin/Globulin Ratio 1.2 % 01/25/19 04:06 Lipase 24 units/L (13-60) 01/23/19 17:59 Urine Color Deb (Yellow) 01/23/19 18:00 Urine Turbidity Slightly-cloudy (Clear) 01/23/19 18:00 Urine pH 6.0 (5.0-7.0) 01/23/19 18:00 Ur Specific [place] 1.020 (1.003-1.030) 01/23/19 18:00 Urine Protein <15 mg/dl mg/dL (Negative) 01/23/19 18:00 Urine Glucose (UA) Neg mg/dL (Negative) 01/23/19 18:00 Urine Ketones Neg mg/dL (Negative) 01/23/19 18:00 Urine Blood Neg (Negative) 01/23/19 18:00 Urine Nitrite Neg (Negative) 01/23/19 18:00 Urine Bilirubin Neg (Negative) 01/23/19 18:00 Urine Urobilinogen 2.0 mg/dL (<2.0) 01/23/19 18:00 Ur Leukocyte Esterase Neg (Negative) 01/23/19 18:00 Urine WBC (Auto) < 1.0 /HPF (0.0-6.0) 01/23/19 18:00 Urine RBC (Auto) < 1.0 /HPF (0.0-6.0) 01/23/19 18:00 Calcium Oxalate Crystal 1+ 01/23/19 18:00 Amorphous Crystals Few 01/23/19 18:00 Urine Mucus 3+ /HPF 01/23/19 18:00 Active Medications - Current Medications Current Medications: Generic Name Dose Route Start Last Admin Trade Name Freq PRN Reason Stop Dose Admin Piperacillin Sod/Tazobactam Sod 4.5 gm in 100 mls @ 200 mls/hr 01/24/19 15:00 01/25/19 05:14 Zosyn/Ns 4.5gm/100ml IV 200 mls/hr Q8HR SANTI Administration Sodium Chloride 1,000 mls @ 50 mls/hr 01/25/19 12:15 Nacl 0.9% 1000 Ml IV DIRECT SANTI Morphine Sulfate 2 mg 01/23/19 22:31 01/25/19 05:15 Morphine IV 2 mg Q4H PRN Administration Pain, Moderate (4-6) Ondansetron HCl 4 mg 01/23/19 22:31 Zofran IV Q8H PRN Nausea And Vomiting Sodium Chloride 10 ml 01/24/19 10:00 01/25/19 09:53 Sodium Chloride Flush Syringe 10 Ml IV 10 ml BID SANTI Administration Sodium Chloride 10 ml 01/23/19 22:31 Sodium Chloride Flush Syringe 10 Ml IV PRN PRN LINE FLUSH
--- NOTE | 2019-01-25 14:03 | Progress Note ---
Assessment and Plan 48 yo M with 1. choledocolithiasis 2. cholecystitis Plan: 1. for ERCP today 2. IVF 3. IV abx -on zosyn 4. trend LFTs, bilirubin 5. ok for soft diet after ERCP, then NPO p MN tonight for surgery tomorrow 6. Cholecystectomy now planned for tentatively for tomorrow 01/26/19 @1130am Patient and family updated. D/W Dr. Resendiz and GI team Thank you, please call with questions Subjective Date of service: 01/25/19 Narrative: Pt seen and examined. c/o mild epigastric abdominal pain. Feels hungry. No n/v. No f/c Objective Vital Signs - 12hr 01/25/19 01/25/19 04:14 12:11 Temperature 98.4 F 98.7 F Pulse Rate 67 81 Respiratory 20 18 Rate Blood Pressure 136/94 135/94 O2 Sat by Pulse 94 94 Oximetry - General physical appearance Narrative Exam: Gen; AAOx3. NAD CV: s1, S2+ Resp: even and unlabored Abd: soft, ND, mild epigastric TTP. no r/r/g Ext: no c/c/e - Labs 01/25/19 04:06 01/25/19 04:06 Diabetes panel 01/25/19 Range/Units 04:06 Sodium 138 (137-145) mmol/L Potassium 3.8 (3.6-5.0) mmol/L Chloride 104.2 (98-107) mmol/L Carbon Dioxide 25 (22-30) mmol/L BUN 5 L (9-20) mg/dL Creatinine 0.5 L (0.8-1.5) mg/dL Glucose 127 H (75-100) mg/dL Calcium 8.5 (8.4-10.2) mg/dL AST 184 H (5-40) units/L ALT 483 H (7-56) units/L Alkaline Phosphatase 186 H (35-129) units/L Total Protein 6.7 (6.3-8.2) g/dL Albumin 3.7 L (3.9-5) g/dL Calcium panel 01/25/19 Range/Units 04:06 Calcium 8.5 (8.4-10.2) mg/dL Albumin 3.7 L (3.9-5) g/dL Pituitary panel 01/25/19 Range/Units 04:06 Sodium 138 (137-145) mmol/L Potassium 3.8 (3.6-5.0) mmol/L Chloride 104.2 (98-107) mmol/L Carbon Dioxide 25 (22-30) mmol/L BUN 5 L (9-20) mg/dL Creatinine 0.5 L (0.8-1.5) mg/dL Glucose 127 H (75-100) mg/dL Calcium 8.5 (8.4-10.2) mg/dL Adrenal panel 01/25/19 Range/Units 04:06 Sodium 138 (137-145) mmol/L Potassium 3.8 (3.6-5.0) mmol/L Chloride 104.2 (98-107) mmol/L Carbon Dioxide 25 (22-30) mmol/L BUN 5 L (9-20) mg/dL Creatinine 0.5 L (0.8-1.5) mg/dL Glucose 127 H (75-100) mg/dL Calcium 8.5 (8.4-10.2) mg/dL Total Bilirubin 3.80 H (0.1-1.2) mg/dL AST 184 H (5-40) units/L ALT 483 H (7-56) units/L Alkaline Phosphatase 186 H (35-129) units/L Total Protein 6.7 (6.3-8.2) g/dL Albumin 3.7 L (3.9-5) g/dL
[2019-01-25] MEDS ORDERED: SODIUM CHLORIDE 0.9% 1000 ML 1,000 ML ONE (15:30)
--- NOTE | 2019-01-25 15:53 | Anesthesia Consultation ---
Anesthesia Consult and Med Hx Date of service: 01/25/19 - Airway Anesthetic Teeth Evaluation: Good ROM Head & Neck: Adequate Mental/Hyoid Distance: Adequate Mallampati Class: Class III Intubation Access Assessment: Possibly Difficult - Pre-Operative Health Status ASA Pre-Surgery Classification: ASA2 Proposed Anesthetic Plan: MAC - Pulmonary Hx Smoking: Yes (past smoker) Hx Asthma: No Hx Respiratory Symptoms: No SOB: No COPD: No Home Oxygen Therapy: No Hx Pneumonia: No Hx Sleep Apnea: Yes - Cardiovascular System Hx Hypertension: No Hx Coronary Artery Disease: No Hx Heart Attack/AMI: No Hx Angina: No Hx Percutaneous Transluminal Coronary Angioplasty (PTCA): No Hx Cardia Arrhythmia: No Hx Pacemaker: No Hx Internal Defibrillator: No Hx Valvular Heart Disease: No Hx Heart Murmur: No Hx Peripheral Vascular Disease: No - Central Nervous System Hx Neuromuscular Disorder: No Hx Seizures: No CVA: No Hx Back Pain: No Hx Psychiatric Problems: No - Gastrointestinal Hx Ulcer: No Hx Gastroesophageal Reflux Disease: Yes - Endocrine Hx Renal Disease: No Hx End Stage Renal Disease: No Hx Cirrhosis: No Hx Liver Disease: No Hx Insulin Dependent Diabetes: No Hx Non-Insulin Dependent Diabetes: No Hx Thyroid Disease: No Hx Hypothyroidism: No Hx Hyperthyroidism: No - Hematic Hx Anemia: No Hx Sickle Cell Disease: No - Other Systems Hx Alcohol Use: Yes Hx Substance Use: No Hx Cancer: No Hx Obesity: No
--- NOTE | 2019-01-25 15:54 | Anesthesia Consultation ---
Anesthesia Consult and Med Hx Date of service: 01/25/19 - Airway Anesthetic Teeth Evaluation: Good ROM Head & Neck: Adequate Mental/Hyoid Distance: Adequate Mallampati Class: Class III Intubation Access Assessment: Possibly Difficult - Pre-Operative Health Status ASA Pre-Surgery Classification: ASA2 Proposed Anesthetic Plan: General - Pulmonary Hx Smoking: Yes (past smoker) Hx Asthma: No Hx Respiratory Symptoms: No SOB: No COPD: No Home Oxygen Therapy: No Hx Pneumonia: No Hx Sleep Apnea: Yes - Cardiovascular System Hx Hypertension: No Hx Coronary Artery Disease: No Hx Heart Attack/AMI: No Hx Angina: No Hx Percutaneous Transluminal Coronary Angioplasty (PTCA): No Hx Cardia Arrhythmia: No Hx Pacemaker: No Hx Internal Defibrillator: No Hx Valvular Heart Disease: No Hx Heart Murmur: No Hx Peripheral Vascular Disease: No - Central Nervous System Hx Neuromuscular Disorder: No Hx Seizures: No CVA: No Hx Back Pain: No Hx Psychiatric Problems: No - Gastrointestinal Hx Ulcer: No Hx Gastroesophageal Reflux Disease: Yes - Endocrine Hx Renal Disease: No Hx End Stage Renal Disease: No Hx Cirrhosis: No Hx Liver Disease: No Hx Insulin Dependent Diabetes: No Hx Non-Insulin Dependent Diabetes: No Hx Thyroid Disease: No Hx Hypothyroidism: No Hx Hyperthyroidism: No - Hematic Hx Anemia: No Hx Sickle Cell Disease: No - Other Systems Hx Alcohol Use: Yes Hx Substance Use: No Hx Cancer: No Hx Obesity: No
--- NOTE | 2019-01-25 15:54 | Anesthesia Day of Surgery ---
Anesthesia Day of Surgery - Day of Surgery Patient Examined: Yes Patient H&P Reviewed: Yes Patient is NPO: Yes
[2019-01-25] MEDS ORDERED: GLUCAGON (HUMAN RECOMBINANT) 1 MG/ML INJ ONE (15:59)
[2019-01-25] MEDS ORDERED: SODIUM CHLORIDE 0.9% 100 ML ONE (15:59)
[2019-01-25] MEDS ORDERED: LIDOCAINE MPF (2%) 20 MG/1 ML VIAL 5 ML ONE (16:18)
[2019-01-25] MEDS ORDERED: PROPOFOL 200 MG/20 ML VIAL IV ONE ×6 (16:18→17:11)
[2019-01-25] MEDS ORDERED: MIDAZOLAM 2 MG/2 ML INJ ONE (16:38)
--- NOTE | 2019-01-25 17:23 | Post Operative Note ---
Pre-op diagnosis: biliary stones Post-op diagnosis: same Findings: ERCP: bulging ampulla - nl pancreatogram - 10 mm cbd w/ filling defects - sphinterotomy, medium stone x 2 w/ sludge removed - negative other Procedure: ERCP Anesthesia: MAC Surgeon: FANNY HEATH Estimated blood loss: none Pathology: list Specimen disposition: to lab Condition: stable Disposition: floor
--- NOTE | 2019-01-25 17:45 | Fluoroscopy Report ---
FL ercp biliary panc ducts INDICATION / CLINICAL INFORMATION: choledocholethiasis. COMPARISON: CT scan abdomen/pelvis 03/26/2018 FINDINGS: Multiple fluoroscopic images were recorded during ERCP and sphincterotomy. Balloon sweep of the common duct was performed removing multiple gallstones. Final image shows a norm al contrast opacification of the common hepatic and common bile duct with no abnormal filling defect. Fluoroscopy time: 4 minutes 12 seconds. Fluoroscopic images: 12. Signer Name: Anton Diggs MD Signed: 01/25/2019 5:41 PM Workstation Name: [id number]
--- NOTE | 2019-01-25 18:11 | Operative Report ---
PROCEDURE PERFORMED: ERCP with sphincterotomy and stone extraction. INDICATION: 1. Choledocholithiasis. 2. Increased liver function tests. MEDICATIONS: Propofol per COMPUTER HARDWARE ENGINEER. COMPLICATIONS: None. DESCRIPTION OF PROCEDURE: The patient was brought to the procedure suite. The patient had the procedure discussed with him at length. All risks, complications and benefits discussed after which the patient signed for the procedure to be performed. The patient was placed in left lateral decubitus position. Mouth block was placed in the patient's oral cavity. After adequate sedation medication as above, endoscope placed in the mouth and brought to the level of the second portion of duodenum. Retroflexion view was performed. The patient's vital signs remained stable throughout the procedure. FINDINGS: There was noted to be a normal appearing esophagus and stomach. The ampulla was noted in the second portion of duodenum. The ampulla appeared bulging. A sphincterotome with aid of a guidewire was then inserted. Pancreatogram showed a normal-appearing pancreatic duct. Cholangiogram showed approximately 10 mm common bile duct with 2 small filling defects. A medium sized sphincterotomy performed. A 12 mm balloon was then used to sweep the common bile duct and common hepatic duct multiple times. Two medium stones with the largest, lot of sludge and debris were removed. Post-procedure, the patient was satisfactory. An occlusion cholangiogram showed no filling defects. The patient tolerated the procedure well. No complications during the procedure. IMPRESSION: 1. Normal-appearing esophagus and stomach. 2. Bulging ampulla. 3. Normal pancreatogram. 4. Cholangiogram with filling defects and a slightly dilated common bile duct. 5. Sphincterotomy performed. 6. Stone and sludge removed as noted above. RECOMMENDATIONS: 1. Follow labs. 2. Start p.o. later today. 3. Lap donna per surgery team. 4. We will follow up in a.m. JOB# [id number] [facility]
[2019-01-26 05:01] LABS: Basophils % (Auto) 0.4 % (0.0-1.8); Eosinophils # (Auto) 0.1 K/mm3 (0.0-0.4); Eosinophils % (Auto) 1.7 % (0.0-4.3); Hematocrit 38.3 % (35.5-45.6); Hemoglobin 13.4 gm/dl (11.8-15.2); Lymphocytes # (Auto) 1.3 K/mm3 (1.2-5.4); Lymphocytes % (Auto) 25.4 % (13.4-35.0); Mean Corpuscular HGB Conc 35 % (32-34); Mean Corpuscular Volume 90 fl (84-94); Monocytes # (Auto) 0.6 K/mm3 (0.0-0.8); Monocytes % (Auto) 11.8 % (0.0-7.3); Platelet Count 369 K/mm3 (140-440); Red Blood Count 4.24 M/mm3 (3.65-5.03); Red Cell Distribution Width 12.2 % (13.2-15.2)
[2019-01-26] MEDS: PIPERACIL/TAZOBACTA 4.5/NS 100 4.5 GM/100 ML VIAL IV SCH ×3 (05:12→21:51)
[2019-01-26 05:26] LABS: Alanine Aminotransferase 393 units/L (7-56); Albumin 3.5 g/dL (3.9-5); BUN/Creatinine Ratio 14; Blood Urea Nitrogen 7 mg/dL (9-20); Calcium 8.4 mg/dL (8.4-10.2); Hemolysis Index 0
--- NOTE | 2019-01-26 06:52 | Post Anesthesia Evaluation ---
- Post Anesthesia Evaluation Patient Participated: Yes Airway Patent: Yes Stable Respiratory Function: Yes Nausea/Vomiting: No Temp > 96.8F: Yes Pain Manageable: Yes Adequeate Hydration: Yes Anesthesia Complications: No Block Receding Appropriately: Not Applicable Patient on Ventilator: No
--- NOTE | 2019-01-26 09:28 | Gastroenterology Progress Note ---
Assessment and Plan GI: s/p ercp w/ stones/sludge removal yesterday - no complaints overnight - noted slight decrease LFT's overnight - for Lap donna today - further management and d/c per surgery team Subjective Date of service: 01/26/19 Interval history: - no GI complaints overnight Objective - Constitutional Vitals: Temp Pulse Resp BP Pulse Ox 99.2 F 68 18 123/81 95 01/25/19 21:32 01/26/19 05:02 01/26/19 05:02 01/26/19 05:02 01/26/19 05:02 General appearance: no acute distress - EENT Eyes: PERRL - Respiratory Respiratory: bilateral: CTA - Cardiovascular Rhythm: regular Heart Sounds: Present: S1 & S2 - Gastrointestinal General gastrointestinal: Present: soft, non-tender - Labs CBC & Chem 7: 01/26/19 04:07 01/26/19 04:07 Labs: Laboratory Results - last 24 hr 01/26/19 01/26/19 04:07 04:07 WBC 5.3 RBC 4.24 Hgb 13.4 Hct 38.3 MCV 90 MCH 32 MCHC 35 H RDW 12.2 L Plt Count 369 Lymph % (Auto) 25.4 [place] % (Auto) 11.8 H Eos % (Auto) 1.7 Baso % (Auto) 0.4 Lymph # 1.3 [place] # 0.6 Eos # 0.1 Baso # 0.0 Seg Neutrophils % 60.7 Seg Neutrophils # 3.2 Sodium 140 Potassium 3.7 Chloride 105.0 Carbon Dioxide 22 Anion Gap 17 BUN 7 L Creatinine 0.5 L Estimated GFR > 60 BUN/Creatinine Ratio 14 Glucose 87 Calcium 8.4 Total Bilirubin 3.40 H AST 140 H ALT 393 H Alkaline Phosphatase 169 H Total Protein 6.6 Albumin 3.5 L Albumin/Globulin Ratio 1.1
[2019-01-26] MEDS ORDERED: HYDROmorphone 1 MG/1 ML INJ ONE ×2 (11:09→14:48)
[2019-01-26] MEDS ORDERED: PROPOFOL 200 MG/20 ML VIAL IV ONE (11:09)
--- NOTE | 2019-01-26 11:09 | Progress Note ---
Assessment and Plan Assessment and plan: Choledocholithiasis with acute cholecystitis with obstruction Cont. IV fluid and analgesic medication. s/p ercp w/ stones/sludge removal yesterday. Pt. for Lap donna today further management and d/c per surgery team Nausea and vomiting in adult Continue on IV Zofran as needed DVT prophylaxis Patient placed on sequential compression device. History Interval history: No new issues. ERCP yesterday. Hospitalist Physical - Constitutional Vitals: Temp Pulse Resp BP Pulse Ox 99.2 F 68 18 123/81 95 01/25/19 21:32 01/26/19 05:02 01/26/19 05:02 01/26/19 05:02 01/26/19 05:02 General appearance: Present: no acute distress, well-nourished - EENT Eyes: Present: PERRL, EOM intact ENT: hearing intact, clear oral mucosa, dentition normal - Neck Neck: Present: supple, normal ROM - Respiratory Respiratory effort: normal Respiratory: bilateral: CTA - Cardiovascular Rhythm: regular Heart Sounds: Present: S1 & S2. Absent: gallop, rub - Extremities Extremities: no ischemia, No edema, Full ROM - Abdominal General gastrointestinal: soft, non-tender, non-distended, normal bowel sounds - Integumentary Integumentary: Present: clear, warm, dry - Neurologic Neurologic: CNII-XII intact, moves all extremities Results - Labs CBC & Chem 7: 01/26/19 04:07 01/26/19 04:07 Labs: Laboratory Last Values WBC 5.3 K/mm3 (4.5-11.0) 01/26/19 04:07 RBC 4.24 M/mm3 (3.65-5.03) 01/26/19 04:07 Hgb 13.4 gm/dl (11.8-15.2) 01/26/19 04:07 Hct 38.3 % (35.5-45.6) 01/26/19 04:07 MCV 90 fl (84-94) 01/26/19 04:07 MCH 32 pg (28-32) 01/26/19 04:07 MCHC 35 % (32-34) H 01/26/19 04:07 RDW 12.2 % (13.2-15.2) L 01/26/19 04:07 Plt Count 369 K/mm3 (140-440) 01/26/19 04:07 Lymph % (Auto) 25.4 % (13.4-35.0) 01/26/19 04:07 [place] % (Auto) 11.8 % (0.0-7.3) H 01/26/19 04:07 Eos % (Auto) 1.7 % (0.0-4.3) 01/26/19 04:07 Baso % (Auto) 0.4 % (0.0-1.8) 01/26/19 04:07 Lymph # 1.3 K/mm3 (1.2-5.4) 01/26/19 04:07 [place] # 0.6 K/mm3 (0.0-0.8) 01/26/19 04:07 Eos # 0.1 K/mm3 (0.0-0.4) 01/26/19 04:07 Baso # 0.0 K/mm3 (0.0-0.1) 01/26/19 04:07 Seg Neutrophils % 60.7 % (40.0-70.0) 01/26/19 04:07 Seg Neutrophils # 3.2 K/mm3 (1.8-7.7) 01/26/19 04:07 PT 13.1 Sec. (12.2-14.9) 01/24/19 05:31 INR 0.98 (0.87-1.13) 01/24/19 05:31 APTT 26.3 Sec. (24.2-36.6) 01/24/19 05:31 Sodium 140 mmol/L (137-145) 01/26/19 04:07 Potassium 3.7 mmol/L (3.6-5.0) 01/26/19 04:07 Chloride 105.0 mmol/L (98-107) 01/26/19 04:07 Carbon Dioxide 22 mmol/L (22-30) 01/26/19 04:07 Anion Gap 17 mmol/L 01/26/19 04:07 BUN 7 mg/dL (9-20) L 01/26/19 04:07 Creatinine 0.5 mg/dL (0.8-1.5) L 01/26/19 04:07 Estimated GFR > 60 ml/min 01/26/19 04:07 BUN/Creatinine Ratio 14 % 01/26/19 04:07 Glucose 87 mg/dL (75-100) 01/26/19 04:07 Calcium 8.4 mg/dL (8.4-10.2) 01/26/19 04:07 Total Bilirubin 3.40 mg/dL (0.1-1.2) H 01/26/19 04:07 Direct Bilirubin 3.2 mg/dL (0-0.2) H 01/25/19 04:06 Indirect Bilirubin 0.6 mg/dL 01/25/19 04:06 AST 140 units/L (5-40) H 01/26/19 04:07 ALT 393 units/L (7-56) H 01/26/19 04:07 Alkaline Phosphatase 169 units/L (35-129) H 01/26/19 04:07 Total Protein 6.6 g/dL (6.3-8.2) 01/26/19 04:07 Albumin 3.5 g/dL (3.9-5) L 01/26/19 04:07 Albumin/Globulin Ratio 1.1 % 01/26/19 04:07 Lipase 24 units/L (13-60) 01/23/19 17:59 Urine Color Deb (Yellow) 01/23/19 18:00 Urine Turbidity Slightly-cloudy (Clear) 01/23/19 18:00 Urine pH 6.0 (5.0-7.0) 01/23/19 18:00 Ur Specific [place] 1.020 (1.003-1.030) 01/23/19 18:00 Urine Protein <15 mg/dl mg/dL (Negative) 01/23/19 18:00 Urine Glucose (UA) Neg mg/dL (Negative) 01/23/19 18:00 Urine Ketones Neg mg/dL (Negative) 01/23/19 18:00 Urine Blood Neg (Negative) 01/23/19 18:00 Urine Nitrite Neg (Negative) 01/23/19 18:00 Urine Bilirubin Neg (Negative) 01/23/19 18:00 Urine Urobilinogen 2.0 mg/dL (<2.0) 01/23/19 18:00 Ur Leukocyte Esterase Neg (Negative) 01/23/19 18:00 Urine WBC (Auto) < 1.0 /HPF (0.0-6.0) 01/23/19 18:00 Urine RBC (Auto) < 1.0 /HPF (0.0-6.0) 01/23/19 18:00 Calcium Oxalate Crystal 1+ 01/23/19 18:00 Amorphous Crystals Few 01/23/19 18:00 Urine Mucus 3+ /HPF 01/23/19 18:00 Active Medications - Current Medications Current Medications: Generic Name Dose Route Start Last Admin Trade Name Freq PRN Reason Stop Dose Admin Piperacillin Sod/Tazobactam Sod 4.5 gm in 100 mls @ 200 mls/hr 01/24/19 15:00 01/26/19 05:12 Zosyn/Ns 4.5gm/100ml IV 200 mls/hr Q8HR SANTI Administration Sodium Chloride 1,000 mls @ 50 mls/hr 01/25/19 12:15 01/25/19 13:30 Nacl 0.9% 1000 Ml IV 50 mls/hr DIRECT SANTI Administration Morphine Sulfate 2 mg 01/23/19 22:31 01/25/19 05:15 Morphine IV 2 mg Q4H PRN Administration Pain, Moderate (4-6) Ondansetron HCl 4 mg 01/23/19 22:31 Zofran IV Q8H PRN Nausea And Vomiting Sodium Chloride 10 ml 01/24/19 10:00 01/25/19 22:00 Sodium Chloride Flush Syringe 10 Ml IV Not Given BID SANTI Sodium Chloride 10 ml 01/23/19 22:31 Sodium Chloride Flush Syringe 10 Ml IV PRN PRN LINE FLUSH
[2019-01-26] MEDS ORDERED: LIDOCAINE (1%) 10 MG/1 ML VIAL 20 ML MDV ONE (11:35)
[2019-01-26] MEDS ORDERED: BUPIVACAINE/PF (0.5%) 5 MG/1 ML 30 ML VIAL INFILTRATI ONE ×2 (11:36→12:52)
[2019-01-26] MEDS ORDERED: ROCURONIUM 50 MG/5 ML INJ IV ONE ×2 (12:39→12:40)
[2019-01-26] MEDS ORDERED: LIDOCAINE (1%) 10 MG/1 ML VIAL 20 ML MDV INFILTRATI ONE (12:52)
[2019-01-26] MEDS ORDERED: WATER FOR IRRIG STERILE 1,500 ML BOTTLE IR ONE (12:54)
[2019-01-26] MEDS ORDERED: LIDOCAINE MPF (2%) 20 MG/1 ML VIAL 5 ML ONE (13:59)
[2019-01-26] MEDS ORDERED: ONDANSETRON 4 MG/2 ML INJ ONE (13:59)
[2019-01-26] MEDS ORDERED: KETOROLAC 30 MG/1 ML INJ ONE (13:59)
[2019-01-26] MEDS ORDERED: dexAMETHasone 20 MG/5 ML VIAL ONE (14:00)
[2019-01-26] MEDS ORDERED: GLYCOPYRROLATE 0.4 MG/2 ML INJ ONE (14:03)
[2019-01-26] MEDS ORDERED: NEOSTIGMINE 10MG/10 ML INJ MDV ONE (14:03)
--- NOTE | 2019-01-26 14:26 | Post Operative Note ---
Pre-op diagnosis: acute cholecystitis with choledocolithiasis Post-op diagnosis: same Findings: 1. thickened gallbladder wall 2. friable liver 3. dilated cystic duct 4. adhesions from omentum to gallbladder Procedure: robotic assisted cholecystectomy Anesthesia: MILA, local Surgeon: CHI BAÑUELOS Sanitation Laborer: SHANTANU LORA Estimated blood loss: 50-100ml Pathology: list (gallbladder) Specimen disposition: to lab Condition: stable Disposition: PACU
[2019-01-26] MEDS ORDERED: oxyCODONE 5 MG TAB PO PRN (14:28)
[2019-01-26] MEDS ORDERED: HYDROmorphone 1 MG/1 ML INJ IV PRN (14:47)
[2019-01-26] MEDS: SODIUM CHLORIDE 0.9% 1000 ML 1,000 ML IV SCH (15:33)
--- NOTE | 2019-01-26 17:18 | Anesthesia Day of Surgery ---
Anesthesia Day of Surgery - Day of Surgery Patient Examined: Yes Patient H&P Reviewed: Yes Patient is NPO: Yes
[2019-01-26] MEDS: MORPHINE 2 MG/1 ML INJ IV PRN (22:01)
[2019-01-27] MEDS: PIPERACIL/TAZOBACTA 4.5/NS 100 4.5 GM/100 ML VIAL IV SCH (05:23)
[2019-01-27] MEDS: MORPHINE 2 MG/1 ML INJ IV PRN (06:36)
--- NOTE | 2019-01-27 08:15 | Discharge Summary ---
<BONNIE BAIN - Last Filed: 01/27/19 08:08> Providers - Providers Date of Admission: 01/23/19 21:44 Date of discharge: 01/27/19 Attending physician: BONNIE BAIN 01/23/19 21:41 Consult to Physician [CONS] Stat Comment: FELICITY Santana spoke with Dr. Bañuelos @ 2100 Consulting Provider: CHI BAÑUELOS Physician Instructions: NPO; Admit to hospitalist; Zosyn and fluids Reason For Exam: Choledocholithiasis with CBD obstru; cholecystitis 01/23/19 21:53 Consult to Physician [CONS] Stat Comment: FELICITY Santana spoke with Dr. Swift @ [phone] Consulting Provider: TENZIN SWIFT Physician Instructions: Consult in the morning after surgery Reason For Exam: Choledocholithiasis with CBD obstruction Primary care physician: [employer] Hospitalization Reason for admission: cholecystitis Condition: Stable Hospital course: Patient is a 48 y/o male with no significant PMH who presented to ED with c/o epigastric pain with associated N/V x 3. Upon admission, LFTs were found to be elevated with abd CT showing cholecystitis, cholelithiasis, and choledocholithiasis. GI and Surgery were consulted. The patient was admitted with diagnosis of acute cholecystitis and choledocholithiasis. Patient received IV antibiotics and underwent ERCP which revealed bulging ampulla with nl pancreatogram and 10 mm cbd w/ filling defects. The patient underwent sphinterotomy, medium stone x 2 w/ sludge removed. On the following hospital day, patient underwent robotic assisted cholecystectomy. Patient was noted to have thickened gallbladder wall, probable liver, dilated cystic duct and adhesions from omentum to the bladder. The patient was monitored 24 hours postoperatively and is stable for discharge. Dedicated discharge time 32 minutes. Disposition: DC-01 TO HOME OR SELFCARE Time spent for discharge: 32 - Discharge Diagnoses (1) Abdominal pain in male Status: Acute (2) Choledocholithiasis with acute cholecystitis with obstruction Status: Acute (3) Nausea and vomiting in adult Status: Acute Core Measure Documentation - Palliative Care Palliative Care/ Comfort Measures: Not Applicable - Core Measures Any of the following diagnoses?: none Exam - Constitutional Vitals: Temp Pulse Resp BP Pulse Ox 98.4 F 62 18 127/82 94 01/27/19 05:58 01/27/19 05:58 01/27/19 06:36 01/27/19 05:58 01/27/19 05:58 General appearance: Present: no acute distress, well-nourished - EENT Eyes: Present: PERRL ENT: hearing intact, clear oral mucosa - Neck Neck: Present: supple, normal ROM - Respiratory Respiratory effort: normal Respiratory: bilateral: CTA - Cardiovascular Heart Sounds: Present: S1 & S2. Absent: rub, click - Extremities Extremities: pulses symmetrical, No edema Peripheral Pulses: within normal limits - Abdominal General gastrointestinal: Present: soft, non-tender, non-distended, normal bowel sounds Male genitourinary: Present: normal - Integumentary Integumentary: Present: clear, warm, dry - Musculoskeletal Musculoskeletal: gait normal, strength equal bilaterally - Psychiatric Psychiatric: appropriate mood/affect, intact judgment & insight - Neurologic Neurologic: CNII-XII intact, moves all extremities Plan Activity: advance as tolerated Weight Bearing Status: Weight Bear as Tolerated Diet: advance as tolerated Wound: per your surgeon's advice Follow up with: FANNY HEATH MD [Staff Physician] - 7 Days PRIMARY CARE, [Primary Care Provider] - 3-5 Days CHI BAÑUELOS DO [Staff Physician] - 10 Days Prescriptions: oxyCODONE [roxiCODONE] 5 mg PO Q6H PRN #20 tablet PRN Reason: Pain, Moderate (4-6) <CHI BAÑUELOS - Last Filed: 01/27/19 13:45> Providers - Providers Date of Admission: 01/23/19 21:44 Attending physician: BONNIE BAIN 01/23/19 21:41 Consult to Physician [CONS] Stat Comment: FELICITY Santana spoke with Dr. Bañuelos @ 2100 Consulting Provider: CHI BAÑUELOS Physician Instructions: NPO; Admit to hospitalist; Zosyn and fluids Reason For Exam: Choledocholithiasis with CBD obstru; cholecystitis 01/23/19 21:53 Consult to Physician [CONS] Stat Comment: FELICITY Santana spoke with Dr. Swift @ [id number] Consulting Provider: TENZIN SWIFT Physician Instructions: Consult in the morning after surgery Reason For Exam: Choledocholithiasis with CBD obstruction Primary care physician: [employer]ENT Exam - Constitutional Vitals: Temp Pulse Resp BP Pulse Ox 98.4 F 62 18 127/82 94 01/27/19 05:58 01/27/19 05:58 01/27/19 06:36 01/27/19 05:58 01/27/19 05:58 Plan Activity: other (do not drive if taking prescription pain medications) Wound: open to air, per your surgeon's advice (may shower, pat incisions dry, do not scrub or rub) Additional Instructions: Call surgeon's office if you have intractable abdominal pain, vomiting, fever >100.4
[2019-01-27 08:36] LABS: Basophils % (Auto) 0.3 % (0.0-1.8); Eosinophils % (Auto) 0.5 % (0.0-4.3); Hemoglobin 12.8 gm/dl (11.8-15.2); Lymphocytes # (Auto) 1.4 K/mm3 (1.2-5.4); Mean Corpuscular HGB Conc 35 % (32-34); Mean Corpuscular Volume 90 fl (84-94); Monocytes # (Auto) 0.7 K/mm3 (0.0-0.8); Monocytes % (Auto) 10.1 % (0.0-7.3); Platelet Count 364 K/mm3 (140-440); Red Blood Count 4.09 M/mm3 (3.65-5.03); Red Cell Distribution Width 12.5 % (13.2-15.2)
[2019-01-27 08:46] LABS: Alanine Aminotransferase 611 units/L (7-56); Albumin 3.3 g/dL (3.9-5); BUN/Creatinine Ratio 17; Blood Urea Nitrogen 12 mg/dL (9-20); Calcium 8.4 mg/dL (8.4-10.2); Hemolysis Index 0
--- NOTE | 2019-01-27 09:25 | Gastroenterology Progress Note ---
Assessment and Plan GI: s/p ercp w/ stone removal and lap donna - advance diet as tolerated - ok to d/c from GI standpoint - will sign off, call if needed Subjective Date of service: 01/27/19 Interval history: - denies problems overnight Objective - Constitutional Vitals: Temp Pulse Resp BP Pulse Ox 98.4 F 62 18 127/82 94 01/27/19 05:58 01/27/19 05:58 01/27/19 06:36 01/27/19 05:58 01/27/19 05:58 General appearance: no acute distress - EENT Eyes: PERRL - Respiratory Respiratory: bilateral: CTA - Cardiovascular Rhythm: regular Heart Sounds: Present: S1 & S2 - Gastrointestinal General gastrointestinal: Present: soft, non-tender, non-distended - Labs CBC & Chem 7: 01/27/19 07:56 01/27/19 07:56 Labs: Laboratory Results - last 24 hr 01/27/19 01/27/19 07:56 07:56 WBC 7.0 RBC 4.09 Hgb 12.8 Hct 37.0 MCV 90 MCH 31 MCHC 35 H RDW 12.5 L Plt Count 364 Lymph % (Auto) 20.0 [place] % (Auto) 10.1 H Eos % (Auto) 0.5 Baso % (Auto) 0.3 Lymph # 1.4 [place] # 0.7 Eos # 0.0 Baso # 0.0 Seg Neutrophils % 69.1 Seg Neutrophils # 4.8 Sodium 139 Potassium 3.9 Chloride 101.3 Carbon Dioxide 23 Anion Gap 19 BUN 12 Creatinine 0.7 L Estimated GFR > 60 BUN/Creatinine Ratio 17 Glucose 101 H Calcium 8.4 Total Bilirubin 2.70 H AST 415 H ALT 611 H Alkaline Phosphatase 155 H Total Protein 6.1 L Albumin 3.3 L Albumin/Globulin Ratio 1.2
--- NOTE | 2019-01-27 13:44 | Progress Note ---
Assessment and Plan 48 yo M s/p robotic assisted cholecystectomy, POD 1 Plan: 1. Reg diet 2. etoh cessation discussed with patient 3. OOB/ambulate 4. dc fluids 5. prn PO pain control 6. AST and ALT trended upwards, likely due to surgery and cautery of the liver. Bilirubin is trending downwards. Ok to dc from surgery standpoint. Patient to have CMP as outpatient in the next 4-5 days to follow up on LFTs. Will follow up in surgery clinic in 2 weeks. D/W Dr. Holly. Subjective Date of service: 01/27/19 Narrative: Pt seen and examined. c/o soreness near incisions. No f/c. Tolerating diet. Pain well controlled. Has bee ambulating. Objective Vital Signs - 12hr 01/27/19 01/27/19 05:58 06:36 Temperature 98.4 F Pulse Rate 62 Respiratory 18 18 Rate Blood Pressure 127/82 O2 Sat by Pulse 94 Oximetry - General physical appearance Narrative Exam: Gen: AAOx3. NAD CV: S1, S2+ Resp: even and unlabored Abd: soft, NT, ND. incisions c/d/i Ext: no c/c/e - Labs 01/27/19 07:56 01/27/19 07:56 Diabetes panel 01/27/19 Range/Units 07:56 Sodium 139 (137-145) mmol/L Potassium 3.9 (3.6-5.0) mmol/L Chloride 101.3 (98-107) mmol/L Carbon Dioxide 23 (22-30) mmol/L BUN 12 (9-20) mg/dL Creatinine 0.7 L (0.8-1.5) mg/dL Glucose 101 H (75-100) mg/dL Calcium 8.4 (8.4-10.2) mg/dL AST 415 H (5-40) units/L ALT 611 H (7-56) units/L Alkaline Phosphatase 155 H (35-129) units/L Total Protein 6.1 L (6.3-8.2) g/dL Albumin 3.3 L (3.9-5) g/dL Calcium panel 01/27/19 Range/Units 07:56 Calcium 8.4 (8.4-10.2) mg/dL Albumin 3.3 L (3.9-5) g/dL Pituitary panel 01/27/19 Range/Units 07:56 Sodium 139 (137-145) mmol/L Potassium 3.9 (3.6-5.0) mmol/L Chloride 101.3 (98-107) mmol/L Carbon Dioxide 23 (22-30) mmol/L BUN 12 (9-20) mg/dL Creatinine 0.7 L (0.8-1.5) mg/dL Glucose 101 H (75-100) mg/dL Calcium 8.4 (8.4-10.2) mg/dL Adrenal panel 01/27/19 Range/Units 07:56 Sodium 139 (137-145) mmol/L Potassium 3.9 (3.6-5.0) mmol/L Chloride 101.3 (98-107) mmol/L Carbon Dioxide 23 (22-30) mmol/L BUN 12 (9-20) mg/dL Creatinine 0.7 L (0.8-1.5) mg/dL Glucose 101 H (75-100) mg/dL Calcium 8.4 (8.4-10.2) mg/dL Total Bilirubin 2.70 H (0.1-1.2) mg/dL AST 415 H (5-40) units/L ALT 611 H (7-56) units/L Alkaline Phosphatase 155 H (35-129) units/L Total Protein 6.1 L (6.3-8.2) g/dL Albumin 3.3 L (3.9-5) g/dL
[2019-01-27 14:06] VITALS: BP 128/78
--- NOTE | 2019-01-29 14:14 | Operative Report ---
PREOPERATIVE DIAGNOSIS: Acute cholecystitis with choledocholithiasis. POSTOPERATIVE DIAGNOSIS: Acute cholecystitis with choledocholithiasis. FINDINGS: 1. Thickened gallbladder wall. 2. Friable liver. 3. Dilated cystic duct. 4. Adhesions from omentum to gallbladder. PROCEDURE: Robotic-assisted cholecystectomy. ANESTHESIA: General endotracheal anesthesia, local. SURGEON: Светлана Galvez DO. THERMAL CUTTING MACHINE OPERATOR: Isrrael Mccray MD ESTIMATED BLOOD LOSS: 50-100 mL. PATHOLOGY: Gallbladder. SPECIMEN DISPOSITION: To lab. CONDITION DISPOSITION: The patient is stable to PACU. HISTORY OF PRESENT ILLNESS AND INDICATION: The patient is a 48-year-old male who presented to the hospital with complaints of upper abdominal pain. He was found to have cholecystitis along with choledocholithiasis on imaging. His LFTs and bilirubin were elevated. He was started on antibiotics and IV fluids. GI was on board and performed an ERCP and stone extraction. The patient was then scheduled for cholecystectomy. All risks, benefits and alternatives to surgery were discussed with the patient and questions answered. Consent was obtained. PROCEDURE IN DETAIL: The patient was identified in the preoperative area, taken back to the operating room and placed on the operating table in supine position. After anesthesia was induced, the abdomen was prepped and draped in the usual sterile fashion. Timeout was performed. Local anesthetic was infiltrated into all skin incision sites. A 12-mm incision was made above the umbilicus through which a Veress needle was inserted. The Veress needle position was confirmed using saline drop test and the abdomen insufflated to 15 mmHg. Once the abdomen was insufflated, the Veress needle was removed and 12 mm Optiview trocar was placed through this incision. An additional 8 mm left upper quadrant and two 8 mm right upper quadrant trocars were placed under direct visualization. The patient was placed in reverse Trendelenburg and tilted to the left. The gallbladder was obscured by omental adhesions. These adhesions were taken down using blunt dissection. The robot was then docked and the surgeon transferred to the console. A monopolar hook was placed in arm #1, a Cadiere grasper in arm #2 and ProGrasp in arm #3. Additional omental adhesions were taken down from the gallbladder using hook electrocautery. The gallbladder was very distended and needed to be decompressed prior to being grasped. A laparoscopic needle was inserted into the gallbladder fundus by the inventory control assistant surgeon and 30 mL of light green bile was aspirated. The gallbladder was then able to be grasped. The needle was removed and the gallbladder grasped and retracted cephalad. All the omental adhesions were then taken down using hook electrocautery and blunt dissection until the neck of the gallbladder was encountered. The gallbladder wall was extremely thickened and due to the dense adhesions, this did add additional time to the procedure. The gallbladder neck was then dissected very meticulously using the hook electrocautery until the cystic duct and artery were skeletonized. The lateral and medial peritoneal reflections of the gallbladder were also dissected in order to obtain a critical view. There were seen as only two structures entering the gallbladder. One clip was placed on the proximal aspect of the cystic artery and one distally, this was transected in between the clips using electrocautery. The cystic duct was dilated and too large to be adequately clipped and therefore it was decided to staple at the neck of the gallbladder at the distal most aspect of the cystic duct. Gallbladder was dissected off the liver bed using the dome down approach until the cystic duct was the only structure tethering the gallbladder in place. During the dissection off the liver bed, the liver was extremely friable and the gallbladder partially intrahepatic. Hemostasis was achieved along the way using electrocautery. There were fatty changes to the liver. An additional 5 mm left epigastric port was placed by the inventory control assistant surgeon in order to facilitate suctioning during the procedure. Once hemostasis was carefully ensured, the abdomen was irrigated with saline until the irrigant returned clear. The robot was then undocked and the surgeon scrubbed back in. The remainder of the case was performed laparoscopically. The gallbladder was retracted cephalad and the cystic duct transected at the base of the neck of the gallbladder using an [place] 60 mm white load stapler. The staple line was examined and was intact. The clip on the cystic artery was examined and was intact. The gallbladder was placed in the EndoCatch bag and removed via the 12 mm port. There were large stones in the gallbladder. The 12 mm port fascia was closed with interrupted 0 Vicryl suture using the Edgar-Les device. The gallbladder fossa was once again inspected and irrigated until the irrigant returned clear. Hemostasis was ensured. Gibson powder was sprayed into the gallbladder fossa liver bed. The remainder of the ports were removed under direct visualization. The abdomen desufflated. The skin incision once again infiltrated with local anesthetic and skin closed with 4-0 Monocryl subcuticular stitches and skin glue. At the end of the case, all sponge, instrument, sharp counts were correct x 2. The patient was awoken from anesthesia, extubated, and taken to PACU in stable condition. JOB# [id number] JOVANNY/NICOLAS ALVARENGA
== END 2019-01-27 14:33 | disposition home or self-care (01) | DRG 419 ==
LOC: ED 17:17 → 3A 21:44
PROVIDERS: ADMIT Internal Medicine Geriatric Medicine; ATTEND Hospitalist
PROC: 0FC98ZZ Extirpation of Matter from Common Bile Duct, Via Natural or Artificial Opening Endoscopic (ICD-10-PCS; principal; 2019-01-25)
PROC: BF141ZZ Fluoroscopy of Gallbladder, Bile Ducts and Pancreatic Ducts using Low Osmolar Contrast (ICD-10-PCS; 2019-01-25)
PROC: 0FT44ZZ Resection of Gallbladder, Percutaneous Endoscopic Approach (ICD-10-PCS; 2019-01-26)
PROC: 8E0W4CZ Robotic Assisted Procedure of Trunk Region, Percutaneous Endoscopic Approach (ICD-10-PCS; 2019-01-26)
DX: K80.43 Calculus of bile duct with acute cholecystitis with obstruction (principal); G47.30 Sleep apnea, unspecified; K21.9 Gastro-esophageal reflux disease without esophagitis; K82.8 Other specified diseases of gallbladder; Z87.891 Personal history of nicotine dependence; Z72.89 Other problems related to lifestyle; Z82.49 Family history of ischemic heart disease and other diseases of the circulatory system; Z71.41 Alcohol abuse counseling and surveillance of alcoholic
CPT/HCPCS: 36415; 74177; 74330; 80048; 80053; 80076; 81001; 83690; 85025; 85610; 85730; 88304; 96361; 96365; 96375; G0378; C1726; J1100; J1170; J1610; J1885; J2250; J2270; J2405; J2543; J2704; J2710; J2765; J7030; Q9967

== ENCOUNTER 2019-01-30 14:01 | Outpatient (CLI) | payer BC ==
[2019-01-30 14:50] LABS: Albumin 3.9 g/dL (3.9-5); BUN/Creatinine Ratio 25; Blood Urea Nitrogen 15 mg/dL (9-20); Calcium 8.9 mg/dL (8.4-10.2); Hemolysis Index 31
[2019-01-30 15:27] LABS: Alanine Aminotransferase 1097 units/L (7-56)
== END 2019-01-30 14:02 | disposition home or self-care (01) ==
LOC: LAB 14:01
PROVIDERS: ATTEND Obstetrics & Gynecology Gynecologic Oncology
DX: K80.43 Calculus of bile duct with acute cholecystitis with obstruction (principal)
CPT/HCPCS: 36415; 80053